=== PATIENT | male | born 1995 | race Caucasian/White ===

== ENCOUNTER 2018-03-24 21:19 | Emergency (ER) | payer SELFPAY ==
[2018-03-24 21:30] VITALS: BP 119/75; PULSE 84; RESP 20; TEMP 99; O2SAT 97
--- NOTE | 2018-03-24 22:49 | C.PDOC ---
History Of Present Illness 22 year old male presents to the ED c/o right ankle pain and swelling for the past 2 days. Patient states he was playing basketball when he jumped and landed on his right ankle twisting it. Patient applied ice and bengay but did not take any PO medication. Patient denies weakness, numbness, new injury, trauma. Time Seen by Provider: 03/24/18 21:35 Chief Complaint (Nursing): Lower Extremity Problem/Injury History Per: Patient History/Exam Limitations: no limitations Onset/Duration Of Symptoms: Days (2) Current Symptoms Are (Timing): Still Present Recent travel outside of the [place]: No Additional History Per: Patient - Ankle/Foot Description Of Injury: Twisted Alleviating Factor(s): Ice Therapy Past Medical History Reviewed: Historical Data, Nursing Documentation, Vital Signs Vital Signs: Last Vital Signs Temp 99 F 03/24/18 21:24 Pulse 84 03/24/18 21:24 Resp 20 03/24/18 21:24 BP 119/75 03/24/18 21:24 Pulse Ox 97 03/24/18 22:53 - Medical History PMH: No Chronic Diseases Surgical History: No Surg Hx Family History: States: Unknown Family Hx - Social History Hx Alcohol Use: No Hx Substance Use: No Review Of Systems Musculoskeletal: Positive for: Other (right ankle pain and swelling) Neurological: Negative for: Weakness, Numbness Physical Exam - Physical Exam Appears: Non-toxic, No Acute Distress Skin: Normal Color, Warm, Dry Head: Atraumatic, Normacephalic Eye(s): bilateral: Normal Inspection Extremity: Normal ROM, Tenderness (right lateral malleolus, proximal fore foot) , Capillary Refill (< 2 seconds), Swelling (right lateral malleolus, proximal fore foot) Pulses: Left Dorsalis Pedis: Normal, Right Dorsalis Pedis: Normal Neurological/Psych: Oriented x3, Normal Speech Gait: With Assistance (crutches) ED Course And Treatment O2 Sat by Pulse Oximetry: 97 (ON RA) Pulse Ox Interpretation: Normal - Other Rad Right ankle X-Ray X-Ray: Interpreted by Me, Viewed By Me Interpretation: No fractur or dislcoation. positive soft tissue swelling Progress Note: Plan: - Right ankle X-Ray. - Motrin 600 mg PO. Patient will be placed on TWIN wrap, given crutches and was advised to follow up with ortho. 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 - Scribe Statement The provider has reviewed the documentation as recorded by the Scribe Chilo Bull All medical record entries made by the Scribe were at my direction and personally dictated by me. I have reviewed the chart and agree that the record accurately reflects my personal performance of the history, physical exam, medical decision making, and the department course for this patient. I have also personally directed, reviewed, and agree with the discharge instructions and disposition.
--- NOTE | 2018-03-25 08:59 | RAD ---
Date of service: 03/24/2018 PROCEDURE: Right Ankle Radiographs. HISTORY: Pain and swelling s/p sports injury COMPARISON: None FINDINGS: BONES: Bone alignment and mineralization are normal. There is no acute displaced fracture or bone destruction. JOINTS: Normal. Ankle mortise maintained. Talar dome intact SOFT TISSUES: There is severe lateral soft tissue swelling. OTHER FINDINGS: None. IMPRESSION: No acute fracture or dislocation. Severe lateral soft tissue swelling.
== END 2018-03-24 23:28 | disposition home or self-care (01) ==
LOC: C.ER 21:19
DX: S93.401A Sprain of unspecified ligament of right ankle, initial encounter (principal); X50.9XXA Other and unspecified overexertion or strenuous movements or postures, initial encounter; Y93.67 Activity, basketball